=== PATIENT | male | born 1975 | race Caucasian/White ===

== ENCOUNTER 2017-07-13 10:24 | Emergency (ER) | payer MEDICARE ==
[2017-07-13] MEDS: KETOROLAC 30 MG/ML VIAL (J1885) IV (12:11)
[2017-07-13 12:15] LABS: BASO # 0.1 10^3/uL (0.0-0.2); BASO % 0.5 % (0.0-1.0); EOS # 0.2 10^3/uL (0.0-0.50); HEMATOCRIT 46.5 % (42.0-52.0); HEMOGLOBIN 16.2 g/dl (14.0-18.0); IMMATURE GRANULOCYTE % 0.3 % (0-0); LYMPH # 3.7 10^3/uL (1.5-4.5); LYMPH % 33.4 % (24.0-44.0); MEAN CORPUSCULAR HEMOGLOBIN 31.4 pg (27.0-33.0); MEAN CORPUSCULAR HGB CONC 34.8 g/dl (32.0-36.5); MEAN CORPUSCULAR VOLUME 90.1 fl (80.0-96.0); MONO # 0.8 10^3/uL (0.0-0.8); NEUTROPHILS # 6.3 10^3/uL (1.8-7.7); NEUTROPHILS % 56.8 % (36.0-66.0); PLATELET COUNT, AUTOMATED 219 10^3/uL (150-450); RED BLOOD COUNT 5.16 10^6/uL (4.30-6.10)
[2017-07-13 12:42] LABS: ANION GAP 8 MEQ/L (8-16); BLOOD UREA NITROGEN 20 MG/DL (7-18); CALCIUM LEVEL 8.9 MG/DL (8.5-10.1); CARBON DIOXIDE LEVEL 27 MEQ/L (21-32); CHLORIDE LEVEL 109 MEQ/L (98-107); GLOMERULAR FILTRATION RATE > 60.0 (>60); GLUCOSE, FASTING 111 MG/DL (70-100); POTASSIUM SERUM 4.4 MEQ/L (3.5-5.1); SODIUM LEVEL 144 MEQ/L (136-145)
== END 2017-07-13 13:09 | disposition home or self-care (01) ==
LOC: M ED 10:24
DX: N39.0 Urinary tract infection, site not specified (principal); E11.9 Type 2 diabetes mellitus without complications; I10 Essential (primary) hypertension; M51.9 Unspecified thoracic, thoracolumbar and lumbosacral intervertebral disc disorder; M19.90 Unspecified osteoarthritis, unspecified site; J30.2 Other seasonal allergic rhinitis; Z79.899 Other long term (current) drug therapy; F17.210 Nicotine dependence, cigarettes, uncomplicated
CPT/HCPCS: J1885

== ENCOUNTER → 2018-12-08 | Outpatient (REF) ==
[~2018-12-08] MED LIST: ACET1TAB16 PO; CIPR-249 PO; KETO10TAB PO; LISI10TA4 PO; MELO7.5T7 PO; PENI250T57 PO; PRAV40TA2 PO
--- NOTE | 2018-12-08 13:48 | REP ---
Clinical: Pain in disability. Technique: AP, lateral, coned-down views of the lumbosacral spine. Comparison: 04/02/2011. Findings: Alignment and lordosis maintained without evidence for acute fracture / compression injury or subluxation. Moderate multilevel degenerative changes are appreciated including endplate sclerosis, early osteophytosis and disc space narrowing. Findings most pronounced at L5-S1. Impression: Moderate multilevel degenerative spondylosis predominantly involving L5-S1. Electronically Signed by Wilber Cueva MD 12/08/2018 01:39 P
== END ==
LOC: M SMT 13:06
PROVIDERS: ATTEND Internal Medicine
DX: M51.36 Other intervertebral disc degeneration, lumbar region (principal)